=== PATIENT | female | born 1980 | race Caucasian/White ===

== ENCOUNTER 2021-03-03 12:46 | Outpatient (CLI) | payer BC | END 2021-03-03 12:47 | disposition home or self-care (01) | LOC: BICMAMMO 12:46 | PROVIDERS: ATTEND Physician Assistant | DX: Z12.31 Encounter for screening mammogram for malignant neoplasm of breast (principal) | CPT/HCPCS: 77063; 77067 ==

== ENCOUNTER 2021-03-17 17:56 | Inpatient (IN) | payer BC ==
[2021-03-17] MEDS ORDERED: Dexamethasone 10 MG/ML VIAL ONE (18:39)
[2021-03-17] MEDS ORDERED: Acetaminophen 500 MG TAB ONE (18:49)
[2021-03-17] MEDS ORDERED: Ketorolac Tromethamine 30 MG/ML VIAL ONE (18:49)
[2021-03-17] MEDS ORDERED: Ondansetron PF 4 MG/2 ML Vial ONE (18:49)
[2021-03-17 18:57] LABS: #Lymphocytes 0.5 thou/uL (1.20-3.40); #Monocytes 0.2 thou/uL (0.11-0.59); #Neutrophils 1.9 thou/uL (1.40-6.50); %Eosinophils 0.1 % (0.0-10.0); %Lymphocytes 20.5 % (21.0-51.0); %Monocytes 6.9 % (0.0-10.0); %Neutrophils 72.5 % (42.0-75.0); Hemoglobin 11.4 g/dL (12.0-16.0); Mean Corpuscular HGB CONC 33.2 g/dL (32.0-36.0); Mean Corpuscular Hemoglobin 27.3 pg (27.0-31.0); Mean Corpuscular Volume 82.1 fL (78.0-98.0); RBC Distribution Width 12.6 % (11.5-14.5); Red Blood Cell (RBC) Count 4.17 mill/uL (4.20-5.40); White Blood Cell (WBC) Count 2.7 thou/uL (4.8-10.8)
[2021-03-17 19:09] LABS: Potassium 3.5 mmol/L (3.5-5.1); Sodium 135 mmol/L (136-145)
[2021-03-17 19:10] LABS: ALT (SGPT) 58 U/L (8-55); AST (SGOT) 120 U/L (5-34); Albumin 3.4 g/dL (3.5-5.0); Alkaline Phosphatase 73 U/L (40-110); Anion Gap 13 mmol/L (10-20); BUN (Urea Nitrogen) 7 mg/dL (7.0-18.7); Bilirubin, Total 0.4 mg/dL (0.2-1.2); Calc. Creatinine Clearance 0 mL/min (70-130); Calcium 7.6 mg/dL (7.8-10.44); Carbon Dioxide 27 mmol/L (22-29); Chloride 99 mmol/L (98-107); Globulin 2.4 g/dL (2.4-3.5); Glucose 160 mg/dL (70-105); Protein, Total 5.8 g/dL (6.0-8.3)
[2021-03-17 19:12] LABS: BHCG - Serum Negative (NEGATIVE); Pregs Control Background? CLEAR/WHITE (CLR/WHITE); Pregs Control Bar Appear? YES (CONTROL BAR)
[2021-03-17 19:16] LABS: MDiff Complete? YES; Mean Platelet Volume 7.4 fL (7.4-10.4); Platelet Count 109 thou/uL (130-400); Platelet Morphology Comment Appears Decreased; Polychromasia SLIGHT = 2-3 cells (100X) (0-2/hpf)
[2021-03-17] MEDS ORDERED: guaiFENesin 200 MG TAB PO PRN (22:11)
[2021-03-17] MEDS ORDERED: Ondansetron PF 4 MG/2 ML Vial IVP PRN (22:14)
[2021-03-17] MEDS ORDERED: Ondansetron ODT 4 MG TAB PO PRN (22:14)
[2021-03-17] MEDS: Sodium Chloride 0.9% 1,000 ML IV SCH (23:14)
[2021-03-18 00:01] LABS: Magnesium 1.6 mg/dL (1.6-2.6)
[2021-03-18 06:18] LABS: Hemoglobin A1c 6.2 % (4.0-6.0)
[2021-03-18 06:23] LABS: #Lymphocytes 0.4 thou/uL (1.20-3.40); #Monocytes 0.2 thou/uL (0.11-0.59); #Neutrophils 1.7 thou/uL (1.40-6.50); %Lymphocytes 19.1 % (21.0-51.0); %Monocytes 7.8 % (0.0-10.0); %Neutrophils 73.1 % (42.0-75.0); Hemoglobin 11.8 g/dL (12.0-16.0); Mean Corpuscular HGB CONC 33.1 g/dL (32.0-36.0); Mean Corpuscular Hemoglobin 27.2 pg (27.0-31.0); Mean Corpuscular Volume 82.2 fL (78.0-98.0); Platelet Count 106 thou/uL (130-400); RBC Distribution Width 12.7 % (11.5-14.5); Red Blood Cell (RBC) Count 4.33 mill/uL (4.20-5.40); White Blood Cell (WBC) Count 2.3 thou/uL (4.8-10.8)
[2021-03-18 06:30] LABS: Anion Gap 10 mmol/L (10-20); BUN (Urea Nitrogen) 8 mg/dL (7.0-18.7); Calc. Creatinine Clearance 0 mL/min (70-130); Calcium 8.1 mg/dL (7.8-10.44); Carbon Dioxide 28 mmol/L (22-29); Chloride 104 mmol/L (98-107); Glucose 209 mg/dL (70-105); Potassium 4.1 mmol/L (3.5-5.1); Sodium 138 mmol/L (136-145)
[2021-03-18] MEDS ORDERED: Dexamethasone 4 MG TAB ONE (08:47)
[2021-03-18] MEDS ORDERED: Acetaminophen 325 MG TAB ONE (08:47)
[2021-03-18] MEDS ORDERED: Enoxaparin Sodium 40 MG/0.4 ML SYRINGE ONE (08:47)
[2021-03-18] MEDS ORDERED: Ascorbic Acid 500 mg Chewable Tablet ONE (08:51)
[2021-03-18] MEDS ORDERED: Zinc Sulfate 220 MG CAP ONE (08:52)
[2021-03-18] MEDS ORDERED: Dexamethasone 10 MG/ML VIAL SLOW IVP SCH (09:00)
[2021-03-18] MEDS ORDERED: Enoxaparin Sodium 30 MG/0.3 ML SYRINGE SC SCH (09:00)
[2021-03-18] MEDS: Acetaminophen 325 MG TAB PO PRN (09:03)
[2021-03-18] MEDS: Ascorbic Acid 500 mg Chewable Tablet PO SCH (09:03)
[2021-03-18] MEDS: Enoxaparin Sodium 40 MG/0.4 ML SYRINGE SC SCH (09:03)
[2021-03-18] MEDS: Zinc Sulfate 220 MG CAP PO SCH (09:03)
[2021-03-18] MEDS ORDERED: Pharmacy to Dose REMDESIVIR IVPB PRN (11:49)
[2021-03-18] MEDS: Sodium Chloride 0.9% 1,000 ML IV SCH (14:25)
[2021-03-18 16:52] VITALS: BMI 41.3
[2021-03-18 18:31] LABS: Vitamin B12 810 pg/mL (211-911)
[2021-03-18 18:54] LABS: SARS-CoV-2 NAA Rapid Test DETECTED (NotDetected)
[2021-03-18 19:30] LABS: HBCM Index 0.06 S/CO (0-0.79); HBSAg Index 0.23 S/CO (0-0.99); HIV (1/2) Antibody/Antigen Non-Reactive (NonReactive); Hep A IgM AB Non-Reactive (NonReactive); Hep A IgM S/CO 0.09 S/CO (0-0.79); Hep B Surf Ag Non-Reactive S/CO (NonReactive); Hep C IgG Ab Non-Reactive (NonReactive); Hep C Index 0.07 S/CO (0-0.79); Hepatitis B Core IgM Abs Non-Reactive (NonReactive)
[2021-03-18] MEDS: Dexamethasone 10 MG/ML VIAL SLOW IVP SCH (22:05)
[2021-03-18] MEDS: Mometasone 200 MCG/Formoterol 5 MCG 120 PUFF INHALER INH SCH (22:06)
[2021-03-19] MEDS: Senokot S 8.6-50 MG TAB PO PRN (01:01)
[2021-03-19] MEDS: Acetaminophen 325 MG TAB PO PRN ×3 (01:02→18:37)
[2021-03-19] MEDS: Benzonatate 100 MG CAP PO PRN ×3 (01:02→18:37)
[2021-03-19 05:25] LABS: Bacteria/HPF 4+ HPF (None Seen); Bilirubin Negative (Negative); Blood, Urine Negative (Negative); Clarity Clear (Clear); Glucose, Urine (Dipstick) >=1000 mg/dL (Negative); Ketone, Urine Negative (Negative); Leukocyte Negative Leu/uL (Negative); Nitrite Negative (Negative); Protein, Urine (Dipstick) 10 mg/dL (Neg-Trace); RBC/HPF 0-3 HPF (0-3); Squamous Epithelial 0-3 HPF (0-3); WBC/HPF 0-3 HPF (0-3)
[2021-03-19 05:38] LABS: Urine Culture Reflex Yes Yes
[2021-03-19] MEDS: Mometasone 200 MCG/Formoterol 5 MCG 120 PUFF INHALER INH SCH ×2 (06:33→18:37)
[2021-03-19 07:15] LABS: #Lymphocytes 0.4 thou/uL (1.20-3.40); #Monocytes 0.4 thou/uL (0.11-0.59); %Basophils 0.7 % (0.0-1.0); %Eosinophils 0.1 % (0.0-10.0); %Lymphocytes 7.2 % (21.0-51.0); %Monocytes 6.6 % (0.0-10.0); %Neutrophils 85.5 % (42.0-75.0); Hemoglobin 10.9 g/dL (12.0-16.0); Mean Corpuscular HGB CONC 33.4 g/dL (32.0-36.0); Mean Corpuscular Hemoglobin 27.4 pg (27.0-31.0); Mean Corpuscular Volume 82.2 fL (78.0-98.0); Mean Platelet Volume 8.1 fL (7.4-10.4); Platelet Count 116 thou/uL (130-400); RBC Distribution Width 12.7 % (11.5-14.5); Red Blood Cell (RBC) Count 3.96 mill/uL (4.20-5.40); White Blood Cell (WBC) Count 5.9 thou/uL (4.8-10.8)
[2021-03-19 07:22] LABS: Anion Gap 12 mmol/L (10-20); BUN (Urea Nitrogen) 8 mg/dL (7.0-18.7); Calc. Creatinine Clearance 206 mL/min (70-130); Calcium 8.3 mg/dL (7.8-10.44); Carbon Dioxide 26 mmol/L (22-29); Chloride 102 mmol/L (98-107); Glucose 245 mg/dL (70-105); Potassium 4.3 mmol/L (3.5-5.1); Sodium 136 mmol/L (136-145)
[2021-03-19] MEDS ORDERED: Dextrose 50% Abboject 50 ML SYRINGE SLOW IVP PRN (08:35)
[2021-03-19] MEDS ORDERED: Dextrose 5% in Water 1,000 ML IV PRN (08:35)
[2021-03-19] MEDS: Zinc Sulfate 220 MG CAP PO SCH (08:42)
[2021-03-19] MEDS: Ascorbic Acid 500 mg Chewable Tablet PO SCH (08:42)
[2021-03-19] MEDS: Dexamethasone 10 MG/ML VIAL SLOW IVP SCH ×2 (08:43→20:48)
[2021-03-19] MEDS: Enoxaparin Sodium 40 MG/0.4 ML SYRINGE SC SCH (08:43)
[2021-03-19] MEDS ORDERED: REMDESIVIR 200 MG in Sodium Chloride 0.9% 250 ML 210 ML IV SCH (09:45)
[2021-03-19] MEDS: HumaLOG 300 UNITS/3 ML VIAL SC PRN ×3 (12:46→20:49)
[2021-03-19] MEDS ORDERED: Acetaminophen 325 MG TAB PO PRN (15:32)
[2021-03-19] MEDS ORDERED: PROMETHAZINE PO PRN (15:42)
[2021-03-19] MEDS ORDERED: DEXTROMETHORPHAN PO PRN (15:42)
[2021-03-19] MEDS: diphenhydrAMINE 25 MG CAP PO SCH (20:48)
[2021-03-20] MEDS: HumaLOG 300 UNITS/3 ML VIAL SC PRN ×4 (05:41→21:27)
[2021-03-20] MEDS: Benzonatate 100 MG CAP PO PRN ×2 (05:44→18:03)
[2021-03-20] MEDS: Acetaminophen 325 MG TAB PO PRN ×2 (05:44→18:03)
[2021-03-20] MEDS: Mometasone 200 MCG/Formoterol 5 MCG 120 PUFF INHALER INH SCH ×2 (05:45→18:55)
[2021-03-20] MEDS: Enoxaparin Sodium 40 MG/0.4 ML SYRINGE SC SCH (08:27)
[2021-03-20] MEDS: Ascorbic Acid 500 mg Chewable Tablet PO SCH (08:28)
[2021-03-20] MEDS: Zinc Sulfate 220 MG CAP PO SCH (08:28)
[2021-03-20] MEDS: Bupropion 150 MG XL TAB PO SCH (08:28)
[2021-03-20] MEDS: Dexamethasone 10 MG/ML VIAL SLOW IVP SCH ×2 (08:28→21:26)
[2021-03-20] MEDS: DULoxetine 60 MG CAP PO SCH (08:28)
[2021-03-20] MEDS: REMDESIVIR 100 MG in Sodium Chloride 0.9% 250 ML 230 ML IV SCH (08:31)
[2021-03-20 09:32] LABS: #Lymphocytes 0.7 thou/uL (1.20-3.40); #Monocytes 0.6 thou/uL (0.11-0.59); #Neutrophils 5.8 thou/uL (1.40-6.50); %Eosinophils 0.4 % (0.0-10.0); %Lymphocytes 9.6 % (21.0-51.0); Hemoglobin 10.8 g/dL (12.0-16.0); Mean Corpuscular HGB CONC 32.4 g/dL (32.0-36.0); Mean Corpuscular Volume 83.2 fL (78.0-98.0); Platelet Count 146 thou/uL (130-400); RBC Distribution Width 12.8 % (11.5-14.5); White Blood Cell (WBC) Count 7.1 thou/uL (4.8-10.8)
[2021-03-20 09:50] LABS: ALT (SGPT) 79 U/L (8-55); AST (SGOT) 57 U/L (5-34); Albumin 3.1 g/dL (3.5-5.0); Alkaline Phosphatase 59 U/L (40-110); Bilirubin, Direct 0.2 mg/dL (0.1-0.3); Bilirubin, Total 0.4 mg/dL (0.2-1.2); Protein, Total 5.9 g/dL (6.0-8.3)
[2021-03-20 09:51] LABS: Anion Gap 12 mmol/L (10-20); BUN (Urea Nitrogen) 14 mg/dL (7.0-18.7); Calc. Creatinine Clearance 203 mL/min (70-130); Calcium 8.5 mg/dL (7.8-10.44); Carbon Dioxide 28 mmol/L (22-29); Chloride 101 mmol/L (98-107); Glucose 222 mg/dL (70-105); Potassium 4.4 mmol/L (3.5-5.1); Sodium 137 mmol/L (136-145)
[2021-03-20] MEDS: diphenhydrAMINE 25 MG CAP PO SCH (21:26)
[2021-03-21] MEDS: Senokot S 8.6-50 MG TAB PO PRN (05:00)
[2021-03-21] MEDS: Benzonatate 100 MG CAP PO PRN ×2 (05:00→22:05)
[2021-03-21] MEDS: Acetaminophen 325 MG TAB PO PRN ×2 (05:01→22:05)
[2021-03-21] MEDS: HumaLOG 300 UNITS/3 ML VIAL SC PRN ×3 (05:02→17:13)
[2021-03-21] MEDS: Mometasone 200 MCG/Formoterol 5 MCG 120 PUFF INHALER INH SCH ×2 (06:18→17:54)
[2021-03-21] MEDS: Ascorbic Acid 500 mg Chewable Tablet PO SCH (09:02)
[2021-03-21] MEDS: Bupropion 150 MG XL TAB PO SCH (09:02)
[2021-03-21] MEDS: Zinc Sulfate 220 MG CAP PO SCH (09:02)
[2021-03-21] MEDS: REMDESIVIR 100 MG in Sodium Chloride 0.9% 250 ML 230 ML IV SCH (09:02)
[2021-03-21] MEDS: Dexamethasone 10 MG/ML VIAL SLOW IVP SCH ×2 (09:02→21:47)
[2021-03-21] MEDS: DULoxetine 60 MG CAP PO SCH (09:02)
[2021-03-21] MEDS: Enoxaparin Sodium 40 MG/0.4 ML SYRINGE SC SCH (09:02)
[2021-03-21] MEDS ORDERED: Dextrose 50% Abboject 50 ML SYRINGE SLOW IVP PRN (15:40)
[2021-03-21] MEDS ORDERED: HumaLOG 300 UNITS/3 ML VIAL SC PRN (15:40)
[2021-03-21] MEDS ORDERED: Dextrose 5% in Water 1,000 ML IV PRN (15:40)
[2021-03-21] MEDS ORDERED: Lantus 1000 UNITS/10 ML VIAL SC SCH (21:00)
[2021-03-21] MEDS: diphenhydrAMINE 25 MG CAP PO SCH (21:47)
[2021-03-22] MEDS: HumaLOG 300 UNITS/3 ML VIAL SC PRN ×3 (06:16→15:54)
[2021-03-22] MEDS: Mometasone 200 MCG/Formoterol 5 MCG 120 PUFF INHALER INH SCH (06:28)
[2021-03-22] MEDS: Bupropion 150 MG XL TAB PO SCH (08:53)
[2021-03-22] MEDS: DULoxetine 60 MG CAP PO SCH (08:53)
[2021-03-22] MEDS: Enoxaparin Sodium 40 MG/0.4 ML SYRINGE SC SCH (08:53)
[2021-03-22] MEDS: Ascorbic Acid 500 mg Chewable Tablet PO SCH (08:53)
[2021-03-22] MEDS: Dexamethasone 10 MG/ML VIAL SLOW IVP SCH (08:53)
[2021-03-22] MEDS: Zinc Sulfate 220 MG CAP PO SCH (08:53)
[2021-03-22 09:18] VITALS: BP 113/73; TEMP 98.1
[2021-03-22] MEDS: REMDESIVIR 100 MG in Sodium Chloride 0.9% 250 ML 230 ML IV SCH (10:04)
== END 2021-03-22 17:59 | disposition home or self-care (01) | DRG 871 ==
LOC: ERS 17:56 → ERHOLD 20:17 → T4-A 03-18 16:16 → OBSVTOIN 03-18 16:53
PROVIDERS: ADMIT Student in an Organized Health Care Education/Training Program; ATTEND Internal Medicine
PROC: 3E0333Z Introduction of Anti-inflammatory into Peripheral Vein, Percutaneous Approach (ICD-10-PCS; 2021-03-18)
PROC: 8E0ZXY6 Isolation (ICD-10-PCS; 2021-03-18)
PROC: 3E03329 Introduction of Other Anti-infective into Peripheral Vein, Percutaneous Approach (ICD-10-PCS; 2021-03-18)
PROC: XW033E5 Introduction of Remdesivir Anti-infective into Peripheral Vein, Percutaneous Approach, New Technology Group 5 (ICD-10-PCS; principal; 2021-03-19)
DX: A41.89 Other specified sepsis (principal); U07.1 COVID-19; J12.82 Pneumonia due to coronavirus disease 2019; J96.01 Acute respiratory failure with hypoxia; Z68.41 Body mass index [BMI] 40.0-44.9, adult; E87.1 Hypo-osmolality and hyponatremia; D61.818 Other pancytopenia; R65.20 Severe sepsis without septic shock; N30.90 Cystitis, unspecified without hematuria; I10 Essential (primary) hypertension; F32.A Depression, unspecified; K21.9 Gastro-esophageal reflux disease without esophagitis; E66.01 Morbid (severe) obesity due to excess calories; G47.30 Sleep apnea, unspecified; R74.01 Elevation of levels of liver transaminase levels; B96.5 Pseudomonas (aeruginosa) (mallei) (pseudomallei) as the cause of diseases classified elsewhere; Q18.0 Sinus, fistula and cyst of branchial cleft; Z79.899 Other long term (current) drug therapy; Z90.89 Acquired absence of other organs; Z80.51 Family history of malignant neoplasm of kidney
CPT/HCPCS: 0240U; 36415; 36416; 71045; 71275; 80048; 80053; 80074; 80076; 81001; 82607; 82728; 83036; 83735; 84145; 84443; 84703; 85025; 85379; 85652; 86140; 87077; 87086; 87186; 87389; 93005; 96372; 96374; 96375; 96376; G0378; J0248; J1100; J1650; J1815; J1885; J1956; J2405; J7050; J8540

== ENCOUNTER 2021-08-31 07:43 | Outpatient (CLI) | payer BC | END 2021-08-31 07:44 | disposition home or self-care (01) | LOC: BICRAD 07:43 | PROVIDERS: ATTEND Internal Medicine | DX: M25.561 Pain in right knee (principal); M25.562 Pain in left knee ==

== ENCOUNTER 2021-12-29 12:57 | Outpatient (CLI) | payer BC | END 2021-12-29 12:58 | disposition home or self-care (01) | LOC: BICCT 12:57 | PROVIDERS: ATTEND Internal Medicine | DX: J98.4 Other disorders of lung (principal); R91.8 Other nonspecific abnormal finding of lung field | CPT/HCPCS: 71250 ==

== ENCOUNTER 2022-04-13 11:47 | Outpatient (CLI) | payer BC | END 2022-04-13 11:48 | disposition home or self-care (01) | LOC: BICRAD 11:47 | PROVIDERS: ATTEND Internal Medicine | DX: J06.9 Acute upper respiratory infection, unspecified (principal); R05.9 Cough, unspecified; R09.89 Other specified symptoms and signs involving the circulatory and respiratory systems | CPT/HCPCS: 71046 ==

== ENCOUNTER 2022-07-20 15:53 | Outpatient (CLI) | payer BC | END 2022-07-20 15:54 | disposition home or self-care (01) | LOC: RAD 15:53 | PROVIDERS: ATTEND Internal Medicine | DX: M54.50 Low back pain, unspecified (principal); M53.3 Sacrococcygeal disorders, not elsewhere classified | CPT/HCPCS: 72100; 72220 ==

== ENCOUNTER 2023-01-31 07:44 | Outpatient (CLI) | payer BC | END 2023-01-31 07:45 | disposition home or self-care (01) | LOC: BICCT 07:44 | PROVIDERS: ATTEND Internal Medicine | DX: J98.4 Other disorders of lung (principal); R91.8 Other nonspecific abnormal finding of lung field | CPT/HCPCS: 71250 ==

== ENCOUNTER 2023-12-06 15:53 | Outpatient (CLI) | payer BC | END 2023-12-06 15:54 | disposition home or self-care (01) | LOC: BICRAD 15:53 | PROVIDERS: ATTEND Internal Medicine | DX: M54.6 Pain in thoracic spine (principal); M47.814 Spondylosis without myelopathy or radiculopathy, thoracic region | CPT/HCPCS: 72072 ==

== ENCOUNTER 2025-03-11 11:20 | Outpatient (CLI) | payer BC | END 2025-03-11 11:21 | disposition home or self-care (01) | LOC: RAD 11:20 | PROVIDERS: ATTEND Internal Medicine | DX: R06.00 Dyspnea, unspecified (principal) | CPT/HCPCS: 71046 ==